=== PATIENT | male | born 1960 | race American Indian/Alaskan Native ===

== ENCOUNTER 2020-08-07 11:21 | Emergency (ER) | payer MEDICARE ==
--- NOTE | 2020-08-07 11:48 | Emergency Department Report ---
ED CPR HPI - General Chief Complaint: Cardiac Arrest/CPR Stated Complaint: CA Time Seen by Provider: 08/07/20 11:37 Source: EMS, old records reviewed Mode of arrival: Stretcher Limitations: Altered Mental Status, Physical Limitation - History of Present Illness Initial Comments: 60-year-old male with history of an acute CVA on 05/10/2020, multiple myeloma, type 2 diabetes mellitus, hypertension who was discharged 2 days ago after 10- day admission for progressive altered mental status and decreased p.o. intake secondary to dysphagia requiring G-tube placement with possible aspiration pneumonia diagnosed prior to discharge presents to the hospital in cardiopulmonary arrest. It is noted that patient had a poor prognosis upon discharge and was a continued aspiration risk. Patient had a witnessed arrest at home. Upon EMS arrival patient was found apneic, pulseless, and asystole on the monitor. Patient was intubated with a 7.0 ET tube, IO was placed, and he received a total of four doses of epinephrine, one dose of Narcan, one dose of sodium bicarb, and had Accu-Chek at 320 at the scene. Despite all resuscitation efforts patient has remained in asystole throughout the duration of the code (started 30 minutes prior to arrival) and remains in asystole upon arrival to the ED. - Related Data Home Medications Medication Instructions Recorded Confirmed Last Taken AtorvaSTATin 80 mg PO DAILY 07/26/20 07/26/20 Unknown Clopidogrel 75 mg PO DAILY 07/26/20 07/26/20 Unknown Flomax 0.4 mg PO DAILY 07/26/20 07/26/20 Unknown Gabapentin 300 mg PO TID 07/26/20 07/26/20 Unknown Metoprolol [Lopressor TAB] 25 mg PO BID 07/26/20 07/26/20 Unknown Venlafaxin ER 75 mg PO DAILY 07/26/20 07/26/20 Unknown Zofran ODT TAB 4 mg PO TID 07/26/20 07/26/20 Unknown Previous Rx's Medication Instructions Recorded Last Taken Type Amoxicillin/Potassium Clav 1 each PO BID #20 tablet 08/04/20 Unknown Rx [Augmentin 875-125 Tablet] Aspirin [Aspirin SUPPOS] 300 mg [place] QDAY #30 supp.rect 08/04/20 Unknown Rx AtorvaSTATin [Lipitor] 80 mg PO QHS #30 tablet 08/04/20 Unknown Rx Clopidogrel [Plavix] 75 mg PO QDAY #30 tablet 08/04/20 Unknown Rx Gabapentin 300 mg PO Q8HR #60 capsule 08/04/20 Unknown Rx Insulin Glargine [Lantus VIAL] 10 units SUB-Q QHS #1 units 08/04/20 Unknown Rx Insulin Lispro [Humalog] 0 unit SUB-Q Q6H #1 vial 08/04/20 Unknown Rx Keppra 1,000 mg PO BID #60 08/04/20 Unknown Rx Lactulose [Cephulac] 20 gm PO QHS PRN #30 oral.liqd 08/04/20 Unknown Rx Lansoprazole Solutab [Prevacid 30 mg FEEDTUBE QDAY #30 tab.rapdis 08/04/20 Unknown Rx Solutab] Lipase/Protease/Amylase [Pancreaze 1 each FEEDTUBE PRN PRN #20 capsule 08/04/[address],500 Unit] Metoprolol [Lopressor TAB] 12.5 mg PO BID #60 tablet 08/04/20 Unknown Rx Ondansetron [Zofran ODT TAB] 4 mg PO TID #20 tab.rapdis 08/04/20 Unknown Rx Tamsulosin [Flomax] 0.4 mg PO QDAY #30 capsule 08/04/20 Unknown Rx hydrALAZINE [Apresoline TAB] 25 mg PO TID #90 08/04/20 Unknown Rx traMADoL [Ultram 50 MG tab] 25 mg PO Q4H PRN #60 tablet 08/04/20 Unknown Rx traZODone [Desyrel] 50 mg PO QHS PRN #30 tablet 08/04/20 Unknown Rx Allergies Allergy/AdvReac Type Severity Reaction Status Date / Time No Known Allergies Allergy Unverified 07/26/20 18:33 ED Review of Systems ROS: Stated complaint: CA Other details as noted in HPI Comment: Unobtainable due to pts medical conditions ED Past Medical Hx - Past Medical History Previous Medical History?: Yes Hx Hypertension: Yes Hx CVA: Yes Hx Heart Attack/AMI: No Hx Diabetes: Yes Hx Liver Disease: No Hx Renal Disease: No Hx Sickle Cell Disease: No Hx Seizures: No Hx Asthma: No Hx COPD: No Additional medical history: bone cancer - Surgical History Hx Pacemaker: No Hx Internal Defibrillator: No - Medications Home Medications: Home Medications Medication Instructions Recorded Confirmed Last Taken Type AtorvaSTATin 80 mg PO DAILY 07/26/20 07/26/20 Unknown History Clopidogrel 75 mg PO DAILY 07/26/20 07/26/20 Unknown History Flomax 0.4 mg PO DAILY 07/26/20 07/26/20 Unknown History Gabapentin 300 mg PO TID 07/26/20 07/26/20 Unknown History Metoprolol [Lopressor TAB] 25 mg PO BID 07/26/20 07/26/20 Unknown History Venlafaxin ER 75 mg PO DAILY 07/26/20 07/26/20 Unknown History Zofran ODT TAB 4 mg PO TID 07/26/20 07/26/20 Unknown History Amoxicillin/Potassium Clav 1 each PO BID #20 tablet 08/04/20 Unknown Rx [Augmentin 875-125 Tablet] Aspirin [Aspirin SUPPOS] 300 mg [place] QDAY #30 supp.rect 08/04/20 Unknown Rx AtorvaSTATin [Lipitor] 80 mg PO QHS #30 tablet 08/04/20 Unknown Rx Clopidogrel [Plavix] 75 mg PO QDAY #30 tablet 08/04/20 Unknown Rx Gabapentin 300 mg PO Q8HR #60 capsule 08/04/20 Unknown Rx Insulin Glargine [Lantus VIAL] 10 units SUB-Q QHS #1 units 08/04/20 Unknown Rx Insulin Lispro [Humalog] 0 unit SUB-Q Q6H #1 vial 08/04/20 Unknown Rx Keppra 1,000 mg PO BID #60 08/04/20 Unknown Rx Lactulose [Cephulac] 20 gm PO QHS PRN #30 oral.liqd 08/04/20 Unknown Rx Lansoprazole Solutab [Prevacid 30 mg FEEDTUBE QDAY #30 tab.rapdis 08/04/20 Unknown Rx Solutab] Lipase/Protease/Amylase [Pancreaze 1 each FEEDTUBE PRN PRN #20 capsule 08/04/[address],500 Unit] Metoprolol [Lopressor TAB] 12.5 mg PO BID #60 tablet 08/04/20 Unknown Rx Ondansetron [Zofran ODT TAB] 4 mg PO TID #20 tab.rapdis 08/04/20 Unknown Rx Tamsulosin [Flomax] 0.4 mg PO QDAY #30 capsule 08/04/20 Unknown Rx hydrALAZINE [Apresoline TAB] 25 mg PO TID #90 08/04/20 Unknown Rx traMADoL [Ultram 50 MG tab] 25 mg PO Q4H PRN #60 tablet 08/04/20 Unknown Rx traZODone [Desyrel] 50 mg PO QHS PRN #30 tablet 08/04/20 Unknown Rx ED Physical Exam - General Limitations: Altered Mental Status - Other Other exam information: General: Unresponsive Head: Atraumatic Eyes: Pupils fixed and unresponsive to light ENT: Orally intubated 7.0 ET tube Neck: Normal appearance Chest: Apneic, breath sounds with bagging CV: Pulseless Abdomen: Soft, normal bowel sounds, nontender, PEG tube Back: Normal inspection Extremity: No spontaneous movement Neuro: GCS 3 Psych: Unresponsive Skin: Warm to touch ED Medical Decision Making - Medical Decision Making Upon arrival patient remains in asystole despite aggressive resuscitation efforts prior to arrival. It is felt that further resuscitation efforts would be futile since patient presents with fixed and dilated pupils and has remained in a pulseless rhythm/asystole for greater than 30 minutes. Time of : 11:21 AM Patient's fianc, sister, and daughter informed of patient's in the ED Critical Care Time: Yes Critical care time in (mins) excluding proc time.: 15 Critical care attestation.: If time is entered above; I have spent that time in minutes in the direct care of this critically ill patient, excluding procedure time. ED Disposition Clinical Impression: Cardiopulmonary arrest Disposition: DC-20 Is pt being admited?: No Condition: Stable Time of Disposition: 11:50
== END 2020-08-07 12:00 ==
LOC: ED 11:21
DX: I46.9 Cardiac arrest, cause unspecified (principal); I10 Essential (primary) hypertension; E11.9 Type 2 diabetes mellitus without complications; Z79.899 Other long term (current) drug therapy